=== PATIENT | male | born 1945 | race Caucasian/White ===

== ENCOUNTER 2017-12-10 15:45 | Inpatient (IN) | payer MEDICARE, MEDICAID ==
[~2017-12-10] VITALS: Ht 177.8 cm; Wt 96.3 kg
[2017-12-10 16:13] LABS: BASOPHILS % (AUTO) 0.3 % (0.0-2.0); EOSINOPHILS % (AUTO) 0.6 % (0.0-6.0); HEMATOCRIT 37 % (39-51); HEMOGLOBIN 12.4 g/dL (13.5-17.5); LYMPHOCYTES # (AUTO) 0.4 /CMM (0.8-4.8); LYMPHOCYTES % (AUTO) 3.5 % (20.0-44.0); MEAN CORPUSCULAR HGB CONC 34 g/dl (31.0-36.0); MEAN CORPUSCULAR VOLUME 83 fL (80-96); MONOCYTES # (AUTO) 1.1 /CMM (0.1-1.30); MONOCYTES % (AUTO) 9.6 % (2.0-12.0); NEUTROPHILS # (AUTO) 9.5 /CMM (1.8-8.9); PLATELET COUNT (AUTO) 97 /CMM (150-450); RDW COEFFICIENT OF VARIATION 13.5 (11.5-15.0); WHITE BLOOD COUNT (AUTO) 11.1 K/uL (4.3-11.0)
[2017-12-10] MEDS ORDERED: LIDOCAINE 2% JEL UROJET 10 ML MM ONE ×2 (16:13→16:20)
[2017-12-10 16:25] LABS: CALCIUM, SERUM 9.3 mg/dL (8.5-10.1); CARBON DIOXIDE 26 mmol/L (21-32); CHLORIDE 101 mmol/L (98-107); CREATININE 1.5 mg/dL (0.6-1.3); GLUCOSE 285 mg/dL (74-106); POTASSIUM 3.6 mmol/L (3.5-5.1); SODIUM SERUM 139 mmol/L (136-145); UREA NITROGEN, BLOOD 48 mg/dL (7-18)
[2017-12-10 16:26] LABS: INR 1.05 (0.85-1.15)
[2017-12-10 16:31] LABS: ACETAMINOPHEN 0 ug/ml (10-30); ALANINE AMINOTRANSFERASE 49 U/L (12-78); ALBUMIN 3.6 g/dL (3.4-5.0); ALCOHOL, BLOOD < 3 mg/dL (0-0); ALKALINE PHOSPHATASE 105 U/L (46-116); ASPARTATE AMINOTRANSFERASE 114 U/L (15-37); BILIRUBIN,DIRECT 0.4 mg/dL (0.0-0.2); SALICYLATE 1.5 mg/dL (2.8-20.0); TOTAL PROTEIN, SERUM 7.7 g/dL (6.4-8.2)
[2017-12-10 16:33] LABS: TROPONIN I 0.112 ng/mL (0.00-0.056)
--- NOTE | 2017-12-10 16:35 | NUR ---
SIDNEY MAGALLANES [phone] SISTER
[2017-12-10 16:51] LABS: THYROID STIMULATING HORMONE 1.031 uIU/mL (0.358-3.74)
--- NOTE | 2017-12-10 16:59 | NUR ---
UNABLE INSERT REYES CATHETER AFTER MULTIPLE ATTEMPS DT POSISBLE BLOCKAGED. MD LYONS AWARE. HOLD OFF URINE COLLECTION FOR NOW.
[2017-12-10 17:23] LABS: CREATINE KINASE MB 14.5 ng/mL (0-3.6)
--- NOTE | 2017-12-10 17:42 | NUR ---
CALLED NURSE SUP FOR TELE BED
--- NOTE | 2017-12-10 17:52 | NUR ---
PAGED EPIC FOR PANEL
[2017-12-10] MEDS ORDERED: IV NS 0.9% 1,000 ML BAG IV ONE (18:00)
[2017-12-10] MEDS ORDERED: ASPIRIN 81 MG TAB.CHEW PO ONE (18:00)
[2017-12-10] MEDS ORDERED: PIPERACILLIN /TAZOBACTAM 2.25 G in IV D5W 50 ML IV ONE (18:00)
[2017-12-10] MEDS ORDERED: ASPIRIN 81 MG TAB.CHEW ONE (18:20)
[2017-12-10] MEDS ORDERED: IV NS 0.9% 1,000 ML IV PRN (18:24)
[2017-12-10] MEDS ORDERED: ACETAMINOPHEN 325 MG TABLET PO PRN (18:30)
[2017-12-10] MEDS ORDERED: ENOXAPARIN SODIUM 40 MG/0.4 ML DISP.SYRIN SQ SCH (18:30)
[2017-12-10] MEDS ORDERED: MAG HYDROX/AL HYDROX/SIMETH 30 ML UDC PO PRN (18:30)
[2017-12-10] MEDS ORDERED: ZOLPIDEM TARTRATE 5 MG TABLET PO PRN ×2 (18:30→23:00)
[2017-12-10] MEDS ORDERED: MAGNESIUM HYDROXIDE 30 ML UDC PO PRN (18:30)
[2017-12-10] MEDS ORDERED: Z GUARD REMEDY 2 OZ OINT TP PRN (18:30)
[2017-12-10] MEDS ORDERED: ONDANSETRON HCL/PF 4 MG/2 ML VIAL IVP PRN (18:30)
--- NOTE | 2017-12-10 18:30 | NUR ---
MD ARAUZ AT
[2017-12-10] MEDS ORDERED: ISOS60TA4 PO (19:02)
[2017-12-10] MEDS ORDERED: ZOLP10TA2 PO (19:02)
[2017-12-10] MEDS ORDERED: NPH,100I SQ ×2 (19:02)
[2017-12-10] MEDS ORDERED: ATOR40TA PO (19:02)
[2017-12-10] MEDS ORDERED: ASPI81TA44 PO (19:02)
[2017-12-10] MEDS ORDERED: SOTA80TA PO (19:02)
[2017-12-10] MEDS ORDERED: CYCL30DR EACHEYE (19:02)
[2017-12-10] MEDS ORDERED: LEVO75TA7 PO (19:02)
[2017-12-10] MEDS ORDERED: QUET400T PO (19:02)
[2017-12-10] MEDS ORDERED: OXCA300T4 PO (19:02)
[2017-12-10] MEDS ORDERED: CHOL100040 PO (19:02)
--- NOTE | 2017-12-10 19:23 | NUR ---
PT TRANSFERRED PER ACLS PROTOCOL.
--- NOTE | 2017-12-10 19:30 | NUR ---
RN NOTE RECEIVED PATIENT FROM ER VIA SABA, DX NSTEMI AND ENCEPHALOPATHY, ALERT/ORIENTED X 2, CONFUSED AT TIMES, SR ON THE MONITOR, BACK PAIN 8/10, PAIN MEDICATION ADMINISTERED, BEDREST, PATIENT WAS TRANSFERRED WITH ONGOING IV FLUIDS FROM ER, SKIN PICTURES TAKEN AND FILED IN THE CHART, NO RESPIRATORY DISTRESS NOTED, VITAL SIGNS TAKEN, BED BATH PROVIDED, CARDIAC DIET, ALL SAFETY MEASURES TAKEN, CALL LIGHT WITHIN REACH, ALL BELONGINGS WITHIN REACH, BED IN THE LOWEST POSITION, SIDE RAILS UP X 2, WILL CONTINUE TO MONITOR PATIENT
[2017-12-10] MEDS: HYDROCODONE/APAP 5/325MG 1 EACH TABLET PO PRN (19:47)
[2017-12-10 20:00] VITALS: BP_SYST 157; BP_SYST 168; BP_SYST 177; BP_DIAS 68; BP_DIAS 83; BP_DIAS 88
[2017-12-10] MEDS ORDERED: DEXTROSE 50%-WATER 50 ML DISP.SYRIN IV PRN (22:30)
[2017-12-10] MEDS ORDERED: ZOLPIDEM TARTRATE 5 MG TABLET PO ONE (23:00)
[2017-12-10] MEDS: PIPERACILLIN /TAZOBACTAM 3.375 G in IV NS 0.9% 50 ML IV SCH (23:07)
--- NOTE | 2017-12-10 23:34 | NUR ---
RN NOTE TROPONIN ELEVATED X 2, NOTIFIED CLAIRE COLEMAN, NO NEW ORDERS GIVEN
[2017-12-11] VITALS: BP 147/66
[2017-12-11 04:00] VITALS: BP 149/56
[2017-12-11] MEDS: PIPERACILLIN /TAZOBACTAM 3.375 G in IV NS 0.9% 50 ML IV SCH ×4 (05:52→23:45)
--- NOTE | 2017-12-11 06:00 | NUR ---
RN NOTE NOT ABLE TO INSERT REYES CATHETER, ATTEMPTED X 2, CHARGE NURSE TRIED WELL, NO SUCCESS, PATIENT IS URINATING, DIAPER CHANGE X3, NOTIFIED CLAIRE COLEMAN
[2017-12-11 06:39] LABS: EOSINOPHILS % (AUTO) 0.1 % (0.0-6.0); HEMATOCRIT 32 % (39-51); HEMOGLOBIN 10.9 g/dL (13.5-17.5); LYMPHOCYTES # (AUTO) 0.6 /CMM (0.8-4.8); LYMPHOCYTES % (AUTO) 6.7 % (20.0-44.0); MEAN CORPUSCULAR HGB CONC 34 g/dl (31.0-36.0); MEAN CORPUSCULAR VOLUME 84 fL (80-96); MONOCYTES # (AUTO) 1.2 /CMM (0.1-1.30); NEUTROPHILS # (AUTO) 7.4 /CMM (1.8-8.9); NEUTROPHILS % (AUTO) 80.2 % (43.0-81.0); PLATELET COUNT (AUTO) 84 /CMM (150-450); RDW COEFFICIENT OF VARIATION 14.5 (11.5-15.0); RED BLOOD CELL COUNT(AUTO) 3.79 MIL/uL (4.5-6.0); WHITE BLOOD COUNT (AUTO) 9.2 K/uL (4.3-11.0)
[2017-12-11 07:07] LABS: ALANINE AMINOTRANSFERASE 42 U/L (12-78); ALBUMIN 2.9 g/dL (3.4-5.0); ALKALINE PHOSPHATASE 81 U/L (46-116); ASPARTATE AMINOTRANSFERASE 86 U/L (15-37); BILIRUBIN,TOTAL 0.7 mg/dL (0.2-1.0); CALCIUM, SERUM 8.2 mg/dL (8.5-10.1); CARBON DIOXIDE 26 mmol/L (21-32); CHLORIDE 106 mmol/L (98-107); CREATININE 1.9 mg/dL (0.6-1.3); GLUCOSE 185 mg/dL (74-106); MAGNESIUM 1.8 mg/dL (1.8-2.4); PHOSPHORUS 2.4 mg/dL (2.5-4.9); POTASSIUM 3.4 mmol/L (3.5-5.1); SODIUM SERUM 142 mmol/L (136-145); TOTAL PROTEIN, SERUM 6.4 g/dL (6.4-8.2); UREA NITROGEN, BLOOD 33 mg/dL (7-18)
[2017-12-11 07:09] LABS: CHOLESTEROL 131 mg/dL (<200); HDL CHOLESTEROL 39 mg/dL (40-60); LDL 81 mg/dL (0-99); THYROID STIMULATING HORMONE 2.688 uIU/mL (0.358-3.74); TRIGLYCERIDES 134 mg/dL (30-150)
[2017-12-11] MEDS: BLOOD SUGAR DIAGNOSTIC 1 EACH STRIP IN SCH ×4 (07:30→21:17)
[2017-12-11 07:34] LABS: TROPONIN I 0.479 ng/mL (0.00-0.056)
[2017-12-11 08:00] VITALS: BP 143/68
[2017-12-11] MEDS: HYDROCODONE/APAP 5/325MG 1 EACH TABLET PO PRN (08:12)
--- NOTE | 2017-12-11 08:30 | NUR ---
RN NOTES: CONTACTED DR BARLOW FOR TROPONIN LEVEL AT 0800. MD AWARE OF PATIENT FEELING "NUMB" IN LOWER EXTREMITIES. PATIENT STABLE. DENYING CHEST PAIN, STATING THAT HE IS FEELING ABDOMINAL PAIN THAT IS RADIATING TO ROXAN[place]. PER DR BARLOW, ORDER STAT CT OF ABDOMEN, CHEST, AND PELVIS WITHOUT CONTRAST. DR BARLOW NOTIFIED OF PATIENT'S EKG OF SINUS RHYTHM WITH ABNORMAL T WAVES INDICATING ISHCHEMIA. PLACED IN CHART. NONLABORED BREATHING NOTED ON ROOM AIR. VS WNL
[2017-12-11 08:49] LABS: BAND % (MANUAL) 2 % (0.0-5.0); LYMPHOCYTES % (MANUAL) 8 % (16-48)
[2017-12-11 09:00] LABS: MONOCYTES % (MANUAL) 10 % (0-11.0); NEUTROPHILS % (MANUAL) 80 (42-76)
[2017-12-11] MEDS ORDERED: SOTALOL HCL 80 MG TABLET PO SCH (09:00)
[2017-12-11] MEDS ORDERED: HEPARIN INFUSION/D5W 500 ML IV PRN (10:00)
[2017-12-11] MEDS: POTASSIUM CHLORIDE 20 MEQ TAB.PRT.SR PO SCH ×6 (10:00→16:18)
--- NOTE | 2017-12-11 10:30 | NUR ---
RN NOTES: PER JUAN HOANG, PAGE DR SONIA CASTANEDA
--- NOTE | 2017-12-11 10:32 | NUR ---
RN NOTES: PATIENT URINATE X2 IN DIAPER AFTER CT SCAN. BLADDER SCAN DONE AND PATIENT NOTED TO HAVE [address] LEONEL SCOTT NOTIFIED. HE STATED THAT THERE IS NO INDICATION AT THE MOMENT. JUAN HOANG NP NOTIFIED
--- NOTE | 2017-12-11 10:48 | NUR ---
RN NOTES: BLOOD SUGAR 204 INSULIN HELD, PATIENT REFUSING TO EAT
[2017-12-11] MEDS: ASPIRIN EC 81 MG TABLET.DR PO SCH (11:07)
[2017-12-11] MEDS: LEVOTHYROXINE SODIUM 100 MCG TABLET PO SCH (11:07)
[2017-12-11] MEDS: ISOSORBIDE MONONITRATE (30MG) 30 MG TAB.SR.24H PO SCH (11:07)
[2017-12-11] MEDS: OXCARBAZEPINE 150 MG TABLET PO SCH ×2 (11:08→17:28)
[2017-12-11] MEDS: CHOLECALCIFEROL 1,000 UNIT TABLET (VIT D3) PO SCH (11:09)
[2017-12-11] MEDS ORDERED: HEPARIN SODIUM, PORCINE 5000 UNITS/1 ML VIAL IV ONE ×2 (11:30→15:00)
[2017-12-11 12:00] VITALS: BP 122/62
[2017-12-11] MEDS: METOPROLOL TARTRATE 50 MG TABLET PO SCH ×2 (12:00→17:28)
[2017-12-11] MEDS ORDERED: K PHOS NEUTRAL 250 MG TABLET PO ONE (12:00)
--- NOTE | 2017-12-11 12:00 | NUR ---
RN NOTES: PER DR BEAR Meyer, APPLY TRIPLE ANTIBIOTIC OINTMENT ON LEFT EAR AND COVER WITH MEPILEX
--- NOTE | 2017-12-11 12:00 | NUR ---
RN NOTES: PER DR BEAR Meyer. APPLY TRIPLE ANTIBIOTIC OINTMENT ON LEFT EAR AND COVER WITH MEPILEX
--- NOTE | 2017-12-11 13:24 | NUR ---
RN NOTES: PATIENT REFUSING METOPROLOL STATING " I ALREADY TOOK IT EARLIER." PATIENT EDUCATED ON MEDICATION WITH BENEFITS AND RISKS EXPLAINED. PATIENT STILL REFUSING
--- NOTE | 2017-12-11 15:21 | NUR ---
RN NOTES:\ PER DR BOYCE, ADMINISTER HEPARIN DRIP. AWARE OF CBC RESULTS TODAY
--- NOTE | 2017-12-11 16:07 | NUR ---
RN NOTES: VERIFIED CALCULATIONS WITH PHARMACY. SPOKE TO ERIK AND INFORMED HER THAT PER PROTOCOL CALCULATIONS, PATIENT TO RECEIVE 6,790 UNITS BOLUS. THEN HEPARIN DRIP AT 1,200 UNITS/HOUR. SHE AGREED. CALCULATIONS VERIFIED WITH CHARGE NURSE MIKIE. ADMINISTERED
[2017-12-11 16:30] VITALS: BP 120/70
[2017-12-11 16:55] LABS: APPEARANCE,URINE CLEAR (CLEAR); BILIRUBIN,URINE NEGATIVE (NEGATIVE); BLOOD, URINE 3+ Ery/uL (NEGATIVE); COLOR,URINE YELLOW (YELLOW); KETONES,URINE TRACE (NEGATIVE); LEUKOCYTE ESTERASE ,URINE NEGATIVE (NEGATIVE); NITRITE, URINE NEGATIVE (NEGATIVE); PH,URINE 5.5 (5.0-8.0); PROTEIN,URINE TRACE mg/dl (NEGATIVE); UGLUCOSE NEGATIVE (NEGATIVE); UROBILINOGEN,URINE 0.2 EU/dL (0.2)
[2017-12-11 16:56] LABS: CREATININE, URINE 122.9 MG/DL (30.0-125.0)
[2017-12-11] MEDS: IV NS 0.9% 1,000 ML IV PRN ×2 (17:23→23:47)
[2017-12-11 17:41] LABS: RBC,URINE 21-50 /HPF (0-2)
[2017-12-11 17:42] LABS: BACTERIA,URINE Few /HPF (None Seen); SQUAMOUS EPITHELIAL CELL,UR Few /HPF (None Seen)
[2017-12-11] MEDS ORDERED: NEOMY SULF/BACITRAC ZN/POLY 15 GM TUBE TP PRN (18:30)
--- NOTE | 2017-12-11 18:51 | NUR ---
RN NOTES: CONTACTED DR HADLEY, [facility] PROVIDED AND OBTAINED PATIENT'S MED LIST. HOWEVER, PER PATIENT, "SOME MEDICATIONS ARE DIFFERENT." CALLED SISTER AND LEFT A VOICEMAIL REGARDING OBTAINING CAREGIVER'S PHONE NUMBER
--- NOTE | 2017-12-11 19:20 | NUR ---
RN NOTES: SPOKE TO TARA MAGALLANES, PATIENT'S SISTER. PER PATIENT, OK TO DISCLOSE INFORMATION TO SISTERS MS MAGALLANES PROVIDED US WITH PATIENT'S [employer]OC AIRSPACE CONTROL OFFICER'S, AMY WARE, PHONE NUMBER. SPOKE TO HIM WELL. HE WILL UPDATE US WITH PATIENT'S DRS AND CAREGIVER'S INFORMATION TOMORROW.
--- NOTE | 2017-12-11 19:30 | NUR ---
RN NOTES: PATIENT RESTING IN BED. NONLABORED BREATHING NOTED ON ROOM AIR. NO SIGNS OF DISTRESS NOTED. DENYING CHEST PAIN AT THE MOMENT. IV SITES ON LEFT HAND GAUGE 20 AND GAUGE 22 PATENT AND INTACT. HEPARIN DRIP AND IV FLUIDS BEING ADMINISTERED PER ORDERS AND PROTOCOL. DR BOYCE AWARE OF CBC , TO BE REPEATED TOMORROW. PTT TO BE REPEATED EVERY 6 HOURS PER PROTOCOL. NO ACTIVE SIGNS OF BLEEDING NOTED. PATIENT URINATING DURING SHIFT. ABLE TO URINATE IN URINAL, COLLECTED SPECIMEN AND SENT IT TO LAB PER CLEAN TECHNIQUE, REFUSING TO HAVE STRAIGHT CATH IN STATING " I WILL NOT LET YOU!" DURING SHIFT, PATIENT ENCOURAGED TO TURN AND REPOSITION EVERY TWO HOURS. KEPT CLEAN AND DRY. PATIENT HAD X3 BOWEL MOVEMENTS OF SOFT BROWN, LARGE. DENYING CONSTIPATION. REFUSING TO EAT DINNER,STATING " I DONT LIKE THE FOOD HERE." OFFERED JUICE AND WATER. CONSENT OBTAINED FOR LEFT EAR BIOPSY FROM SISTER SAMRA MAGALLANES, PLACED IN CHART. AWAITING FOR PHARMACY TO DELIVER TRIPLE ANTIBIOTIC OINTMENT. EAR CLEANSED WITH NS , COVERED WITH MEPLIX. AFTER 1000 PATIENT CONTINUED TO DENY NUMBNESS OF LOWER EXTREMITIES, WAS ABLE TO WIGGLE TOES, AND DENIED SENSORY DEFICITS, PER DR LEONEL SCOTT, UROLOGIST- NO REYES CATHETER. BED IN LOWEST LOCKED POSITION. CALL LIGHT WITHIN REACH. ENDORSED TO NEXT SHIFT
[2017-12-11 20:00] VITALS: BP 136/66
--- NOTE | 2017-12-11 20:02 | NUR ---
RN NOTES RECEIVED PATIENT AWAKE IN BED WITH NO RESPIRATORY DISTRESS OR SHORTNESS OF BREATH. BREATHING EVEN AND UNLABORED. ROOM AIR TOLERATING WELL. NO COMPLAINT OF PAIN OR DISCOMFORT. ALERT AND ORIENTED WITH EPISODES OF CONFUSION. VITAL SIGNS WNL. ON HEPARIN DRIP AT 1200UNITS/HR. NO ADVERSE EFFECT NOTED. KEPT CLEAN AND DRY. WILL CONTINUE TO MONITOR.
[2017-12-11] MEDS: NEOMY SULF/BACITRAC ZN/POLY 15 GM TUBE TP SCH (20:51)
[2017-12-11] MEDS: INSULIN REGULAR, HUMAN 100 UNIT/ML 3 ML VIAL SQ PRN (21:19)
[2017-12-11] MEDS: ZOLPIDEM TARTRATE 10 MG TABLET PO SCH (21:20)
[2017-12-11] MEDS: ATORVASTATIN 40 MG TABLET PO SCH (21:20)
--- NOTE | 2017-12-11 22:20 | NUR ---
RN NOTES RECEIVED PTT RESULT OF 53. NO CHANGE IN HEPARIN DRIP, TOLERATING WELL. NO ADVERSE REACTION NOTED. ORDERED PTT LEVEL FOR 6AM.
[2017-12-12] VITALS: BP 144/75
[2017-12-12] MEDS: METOPROLOL TARTRATE 50 MG TABLET PO SCH ×4 (00:30→17:27)
[2017-12-12] MEDS: IV NS 0.9% 1,000 ML IV PRN ×3 (02:04→21:27)
[2017-12-12 04:00] VITALS: BP 148/67
[2017-12-12] MEDS: PIPERACILLIN /TAZOBACTAM 3.375 G in IV NS 0.9% 50 ML IV SCH ×3 (05:27→17:27)
--- NOTE | 2017-12-12 06:27 | NUR ---
RN CLOSING NOTES ALERT AND ORIENTED WITH CONFUSION, IN BED RESTING COMFORTABLY. NO DISTRESS. BREATHING EVEN AND UNLABORED. HEPARIN DRIP ONGOING, NO ADVERSE EFFECT NOTED. NO COMPLAINT OF PAIN OR DISCOMFORT. VITAL SIGNS WNL. KEPT CLEAN AND DRY. WILL ENDORSE TO AM SHIFT FOR CONTINUITY OF CARE.
[2017-12-12] MEDS: BLOOD SUGAR DIAGNOSTIC 1 EACH STRIP IN SCH ×4 (06:36→21:28)
[2017-12-12] MEDS: INSULIN REGULAR, HUMAN 100 UNIT/ML 3 ML VIAL SQ PRN ×4 (06:41→21:42)
[2017-12-12 06:59] LABS: BASOPHILS % (AUTO) 0.3 % (0.0-2.0); EOSINOPHILS % (AUTO) 0.6 % (0.0-6.0); HEMATOCRIT 30 % (39-51); HEMOGLOBIN 10.1 g/dL (13.5-17.5); LYMPHOCYTES # (AUTO) 0.9 /CMM (0.8-4.8); LYMPHOCYTES % (AUTO) 11.2 % (20.0-44.0); MEAN CORPUSCULAR HGB CONC 34 g/dl (31.0-36.0); MEAN CORPUSCULAR VOLUME 85 fL (80-96); MONOCYTES # (AUTO) 0.9 /CMM (0.1-1.30); MONOCYTES % (AUTO) 11.6 % (2.0-12.0); NEUTROPHILS # (AUTO) 6.1 /CMM (1.8-8.9); NEUTROPHILS % (AUTO) 76.3 % (43.0-81.0); PLATELET COUNT (AUTO) 81 /CMM (150-450); RDW COEFFICIENT OF VARIATION 14.7 (11.5-15.0); WHITE BLOOD COUNT (AUTO) 7.9 K/uL (4.3-11.0)
[2017-12-12 07:25] LABS: TROPONIN I 0.264 ng/mL (0.00-0.056)
--- NOTE | 2017-12-12 07:35 | NUR ---
SEAMAN INITIAL NOTE RECEIVED PATIENT AOX2, SPEECH CLEAR, LYING IN BED COMFORTABLY. PATIENT DENIES ANY CARDIAC OR RESPIRATORY DISTRESS, ON RA, SR ON TELE MONITOR, HR 70'S, NO PAIN REPORTED. PATIENT IS BEDBOUND, DIFFICULTY AMBULATING, INCONTINENT. LEFT HAND #20 ON HEPARIN DRIP TOLERATING WELL L HAND #22 TOLERATING NS AT 150 ML/HR. SAFETY MAINTAINED AT ALL TIMES BED IN LOW LOCKED POSITION, CALL LIGHT WITHIN REACH. WILL CONTINUE TO MONITOR FOR ANY CHANGES IN CONDITION.
[2017-12-12 07:56] LABS: ALANINE AMINOTRANSFERASE 59 U/L (12-78); ALBUMIN 2.5 g/dL (3.4-5.0); ALKALINE PHOSPHATASE 59 U/L (46-116); ASPARTATE AMINOTRANSFERASE 56 U/L (15-37); BILIRUBIN,TOTAL 0.6 mg/dL (0.2-1.0); CALCIUM, SERUM 7.8 mg/dL (8.5-10.1); CARBON DIOXIDE 27 mmol/L (21-32); CHLORIDE 107 mmol/L (98-107); GLUCOSE 184 mg/dL (74-106); MAGNESIUM 1.5 mg/dL (1.8-2.4); PHOSPHORUS 2.6 mg/dL (2.5-4.9); POTASSIUM 3.8 mmol/L (3.5-5.1); SODIUM SERUM 143 mmol/L (136-145); TOTAL PROTEIN, SERUM 5.9 g/dL (6.4-8.2); UREA NITROGEN, BLOOD 21 mg/dL (7-18)
[2017-12-12] MEDS: LEVOTHYROXINE SODIUM 100 MCG TABLET PO SCH (07:57)
[2017-12-12 08:00] VITALS: BP 133/72
[2017-12-12 08:02] LABS: CREATININE 0.9 mg/dL (0.6-1.3)
[2017-12-12] MEDS: ISOSORBIDE MONONITRATE (30MG) 30 MG TAB.SR.24H PO SCH (09:03)
[2017-12-12] MEDS: ASPIRIN EC 81 MG TABLET.DR PO SCH (09:03)
[2017-12-12] MEDS: CHOLECALCIFEROL 1,000 UNIT TABLET (VIT D3) PO SCH (09:03)
[2017-12-12] MEDS: OXCARBAZEPINE 150 MG TABLET PO SCH ×2 (09:03→17:28)
[2017-12-12] MEDS: NEOMY SULF/BACITRAC ZN/POLY 15 GM TUBE TP SCH (09:04)
[2017-12-12 10:17] LABS: BAND % (MANUAL) 5 % (0.0-5.0); LYMPHOCYTES % (MANUAL) 12 % (16-48); MONOCYTES % (MANUAL) 13 % (0-11.0); NEUTROPHILS % (MANUAL) 70 (42-76)
[2017-12-12] MEDS: VALSARTAN 80 MG TABLET PO SCH (10:22)
[2017-12-12] MEDS: ENOXAPARIN SODIUM 40 MG/0.4 ML DISP.SYRIN SQ SCH (10:30)
[2017-12-12 10:55] LABS: IRON, SERUM 31 ug/dl (50-175); TOTAL IRON BINDING CAPACITY 146 ug/dl (250-450)
[2017-12-12 11:01] LABS: FERRITIN 803 ng/mL (8-388)
[2017-12-12] MEDS: Magnesium 1GM/D5W 100ML PREMIX 100 ML IV SCH ×2 (12:40→13:39)
[2017-12-12 16:00] VITALS: BP 146/60
--- NOTE | 2017-12-12 19:30 | NUR ---
MS RN CLOSING NOTES: PATIENT IN BED, AOX2, ON ROOM AIR, BREATHING EVEN AND UNLABORED. APPEARS CALM AND IN NO DISTRESS. DENIES PAIN, SAYS "I AM FEELING BETTER" AND "SHANKAR HELPED ME TO MOVE BETTER TODAY." PIV OVER L HAND INTACT AND PATENT, INFUSING WELL WITH NS RUNNING AT 150 ML/HR. PROVIDED FOR COMFORT AND SAFETY. BED IN LOWEST AND LOCKED POSITION, SIDERAILS UP X 3, CALL LIGHT WITHIN REACH. WILL CONT TO MONITOR.
[2017-12-12 20:00] VITALS: BP 138/59
--- NOTE | 2017-12-12 21:07 | NUR ---
RN NOTES: PATIENT HAS SEROQUEL 1200 MG/ 12 TABS SCHEDULED FOR TONIGHT AT . CALLED PHARMACY TO VERIFY THAT DOSE IS CORRECT, SPOKE TO KADEN. PER PHARMACIST, THIS IS THE DOSE IN HIS PRESCRIPTIONS AND THAT HE HAS BEEN TAKING THIS DOSE BEFORE.
--- NOTE | 2017-12-12 21:30 | NUR ---
RN NOTES: VERFIED WITH PATIENT HIMSELF THAT HE IS TAKING SEROQUEL 1200 MG FOR "YEARS" OR ELSE, HE IS NOT ABLE TO SLEEP. HE ADDED THAT HIS DOCTOR ALSO SUGGESTED TO TAPER IT DOWN BY DECREASING THE DOSE BY 50 MG PER WEEK, ONCE HE IS OUT OF THE HOSPITAL.
[2017-12-12] MEDS: ATORVASTATIN 40 MG TABLET PO SCH (21:33)
[2017-12-12] MEDS: QUETIAPINE FUMARATE 100 MG TABLET PO SCH ×2 (21:50→22:00)
[2017-12-12] MEDS: ZOLPIDEM TARTRATE 10 MG TABLET PO SCH (22:00)
--- NOTE | 2017-12-12 22:20 | NUR ---
RN NOTES: NOTED PIV OVER LEFT HAND TO BE LEAKING. D'EMIL LINE AND REINSERTED NEW IV LINE OVER RFA G 22, WITH GOOD BLOOD RETURN. BLOOD SUGAR CHCKED AT 134 MG/DL, ADMINISTERED 2 UNITS REGULAR INSULIN PER SCALE. GAVE LIGHT SNACK.
[2017-12-13] MEDS: PIPERACILLIN /TAZOBACTAM 3.375 G in IV NS 0.9% 50 ML IV SCH ×5 (00:01→23:14)
[2017-12-13] MEDS: METOPROLOL TARTRATE 50 MG TABLET PO SCH ×5 (00:04→23:15)
[2017-12-13 04:00] VITALS: BP 121/56
[2017-12-13] MEDS: BLOOD SUGAR DIAGNOSTIC 1 EACH STRIP IN SCH ×4 (06:41→22:02)
[2017-12-13] MEDS: INSULIN REGULAR, HUMAN 100 UNIT/ML 3 ML VIAL SQ PRN ×4 (06:42→22:01)
[2017-12-13] MEDS: LEVOTHYROXINE SODIUM 100 MCG TABLET PO SCH (06:43)
[2017-12-13] MEDS: IV NS 0.9% 1,000 ML IV PRN ×3 (06:56→23:53)
--- NOTE | 2017-12-13 06:58 | NUR ---
MS RN CLOSING NOTES: PATIENT IN BED, AOX3, ON ROOM AIR, BREATHING EVEN AND UNLABORED. APPEARS CALM AND IN NO DISTRESS. DENIES PAIN. PIV OVER RFA G 22 INTACT AND INFUSING WELL WITH NS RUNNING AT 150 ML/HR. DUE MEDS GIVEN. PROVIDED FOR COMFORT AND SAFETY. BED IN LOWEST AND LOCKED POSITION, SIDERAILS UP X 3, CALL LIGHT WITHIN REACH. WILL ENDORSE TO AM RN FOR JESÚS.
[2017-12-13 07:13] LABS: BASOPHILS % (AUTO) 0.1 % (0.0-2.0); EOSINOPHILS % (AUTO) 1.9 % (0.0-6.0); HEMATOCRIT 28 % (39-51); HEMOGLOBIN 9.7 g/dL (13.5-17.5); LYMPHOCYTES % (AUTO) 15.9 % (20.0-44.0); MEAN CORPUSCULAR HGB CONC 35 g/dl (31.0-36.0); MEAN CORPUSCULAR VOLUME 84 fL (80-96); MONOCYTES # (AUTO) 0.8 /CMM (0.1-1.30); MONOCYTES % (AUTO) 11.7 % (2.0-12.0); NEUTROPHILS # (AUTO) 4.6 /CMM (1.8-8.9); NEUTROPHILS % (AUTO) 70.4 % (43.0-81.0); PLATELET COUNT (AUTO) 82 /CMM (150-450); RDW COEFFICIENT OF VARIATION 14.4 (11.5-15.0); RED BLOOD CELL COUNT(AUTO) 3.34 MIL/uL (4.5-6.0); WHITE BLOOD COUNT (AUTO) 6.6 K/uL (4.3-11.0)
--- NOTE | 2017-12-13 07:30 | NUR ---
received received pt. in am alert and oriented x3.no complaints offered.
[2017-12-13 07:58] LABS: ALANINE AMINOTRANSFERASE 49 U/L (12-78); ALBUMIN 2.4 g/dL (3.4-5.0); ALKALINE PHOSPHATASE 65 U/L (46-116); ASPARTATE AMINOTRANSFERASE 48 U/L (15-37); BILIRUBIN,TOTAL 0.6 mg/dL (0.2-1.0); CALCIUM, SERUM 7.9 mg/dL (8.5-10.1); CARBON DIOXIDE 26 mmol/L (21-32); CHLORIDE 109 mmol/L (98-107); CREATININE 0.7 mg/dL (0.6-1.3); GLUCOSE 150 mg/dL (74-106); MAGNESIUM 1.8 mg/dL (1.8-2.4); POTASSIUM 3.5 mmol/L (3.5-5.1); SODIUM SERUM 144 mmol/L (136-145); TOTAL PROTEIN, SERUM 5.5 g/dL (6.4-8.2); UREA NITROGEN, BLOOD 14 mg/dL (7-18)
[2017-12-13 08:00] VITALS: BP 126/76
[2017-12-13] MEDS: OXCARBAZEPINE 150 MG TABLET PO SCH ×2 (10:00→17:58)
[2017-12-13] MEDS: CHOLECALCIFEROL 1,000 UNIT TABLET (VIT D3) PO SCH (10:00)
[2017-12-13] MEDS: ISOSORBIDE MONONITRATE (30MG) 30 MG TAB.SR.24H PO SCH (10:00)
[2017-12-13] MEDS: ASPIRIN EC 81 MG TABLET.DR PO SCH (10:00)
[2017-12-13] MEDS: ENOXAPARIN SODIUM 40 MG/0.4 ML DISP.SYRIN SQ SCH (10:02)
[2017-12-13] MEDS: NEOMY SULF/BACITRAC ZN/POLY 15 GM TUBE TP SCH (10:03)
[2017-12-13 10:14] LABS: BAND % (MANUAL) 1 % (0.0-5.0); EOSINOPHILS % (MANUAL) 1 % (0-4); LYMPHOCYTES % (MANUAL) 17 % (16-48); MONOCYTES % (MANUAL) 8 % (0-11.0); NEUTROPHILS % (MANUAL) 73 (42-76)
[2017-12-13 12:00] VITALS: BP 134/62
[2017-12-13 12:30] VITALS: BP 134/62
--- NOTE | 2017-12-13 12:30 | NUR ---
dr. medina in to see pt. dr. brown in to see pt.
--- NOTE | 2017-12-13 15:00 | NUR ---
cooperative,med compliant.
[2017-12-13] MEDS: VALSARTAN 80 MG TABLET PO SCH (15:42)
[2017-12-13 16:00] VITALS: BP 125/55
--- NOTE | 2017-12-13 17:06 | NUR ---
transferred via bed to [email or web address] to aubrey.all belongings additionally sent with pt.
[2017-12-13] MEDS: HYDROCODONE/APAP 5/325MG 1 EACH TABLET PO PRN (17:45)
--- NOTE | 2017-12-13 19:00 | NUR ---
RN MS NOTES PT IN BED, AWAKE, ALERT AND ORIENTED, NO COMPLAINT OF PAIN OR ANY DISCOMFORT, BREATHING PATTERN NORMAL, CALL LIGHT WITHIN REACH, IV FLUIDS INFUSING WELL, PM MEDS GIVEN ORDERED, BLOOD SUGAR CHECKED, INSULIN GIVEN PER SLIDING SCALE ORDERED, ALL NEEDS ATTENDED.
[2017-12-13 20:00] VITALS: BP 118/82
[2017-12-13] MEDS: ATORVASTATIN 40 MG TABLET PO SCH (21:54)
[2017-12-13] MEDS: ZOLPIDEM TARTRATE 10 MG TABLET PO SCH (21:54)
--- NOTE | 2017-12-13 22:03 | NUR ---
Accucheck 289 mg/dl, 6 units regular insulin sc administered, sandwich given for snack
[2017-12-13] MEDS ORDERED: QUETIAPINE FUMARATE 100 MG TABLET ONE (23:00)
[2017-12-13] MEDS: QUETIAPINE FUMARATE 100 MG TABLET PO SCH (23:13)
--- NOTE | 2017-12-13 23:19 | NUR ---
PATIEN REQUESTED TO REDUCE HIS SEROQUEL FROM 1200 MG TO 1000 MG DOSE.
[2017-12-14] MEDS: PIPERACILLIN /TAZOBACTAM 3.375 G in IV NS 0.9% 50 ML IV SCH ×3 (05:09→17:11)
[2017-12-14] MEDS: METOPROLOL TARTRATE 50 MG TABLET PO SCH ×4 (05:18→23:03)
[2017-12-14] MEDS: BLOOD SUGAR DIAGNOSTIC 1 EACH STRIP IN SCH ×4 (05:31→22:28)
--- NOTE | 2017-12-14 05:32 | NUR ---
ACCUCHECK THIS MORNING, 129 MG/DL, NO INSULIN DUE AT THIS TIME.
[2017-12-14 08:00] VITALS: BP 134/64
[2017-12-14] MEDS: OXCARBAZEPINE 150 MG TABLET PO SCH ×2 (08:53→17:12)
[2017-12-14] MEDS: LEVOTHYROXINE SODIUM 100 MCG TABLET PO SCH (08:54)
[2017-12-14] MEDS: ASPIRIN EC 81 MG TABLET.DR PO SCH (08:54)
[2017-12-14] MEDS: VALSARTAN 80 MG TABLET PO SCH (08:54)
[2017-12-14] MEDS: CHOLECALCIFEROL 1,000 UNIT TABLET (VIT D3) PO SCH (08:54)
[2017-12-14] MEDS: ENOXAPARIN SODIUM 40 MG/0.4 ML DISP.SYRIN SQ SCH (08:55)
[2017-12-14] MEDS: ISOSORBIDE MONONITRATE (30MG) 30 MG TAB.SR.24H PO SCH (08:55)
[2017-12-14] MEDS: NEOMY SULF/BACITRAC ZN/POLY 15 GM TUBE TP SCH (08:59)
--- NOTE | 2017-12-14 09:01 | NUR ---
RN MS NOTES PT IN BED, AWAKE, ALERT AND ORIENTEDX3, LEFT SIDE [place], IN NO APPARENT DISTRESS, DENIES PAIN OR DISCOMFORT AT THIS TIME, RESPIRATIONS EVEN AND UNLABORED, ON ROOM AIR, IV TO RIGHT FA 22G INFUSING FLUIDS WELL. LEFT EAR NON HEALING WOUND. SAFETY MEASURES RENDERED, CALL LIGHT PLACED WITHIN REACH. WILL CONTINUE TO MONITOR.
[2017-12-14] MEDS: INSULIN REGULAR, HUMAN 100 UNIT/ML 3 ML VIAL SQ PRN ×3 (12:32→22:32)
--- NOTE | 2017-12-14 12:35 | NUR ---
MS/RN NOTES 1200 BLOOD SUGAR CHECK DONE; 259MG/DL. PATIENT COVERED WITH 6 UNITS INSULIN PER SLIDING SCALE, MEAL AT BEDSIDE, NO S/S OF HYP/HYPERGLYCEMIA. WILL MONITOR
--- NOTE | 2017-12-14 14:49 | NUR ---
MS/RN NOTES PATIENT RESTING IN BED COMFORTABLY, NO S/S OF DISTRESS/DISCOMFORT NOTED. VITAL SIGNS STABLE AND WITHIN NORMAL LIMITS. WILL CONTINUE TO MONITOR.
[2017-12-14 16:00] VITALS: BP 150/83
[2017-12-14] MEDS: IV NS 0.9% 1,000 ML IV PRN (17:12)
--- NOTE | 2017-12-14 18:49 | NUR ---
MS/RN NOTES PATIENT RESTING IN BED COMFORTABLY, NO SIGNIFICANT CHANGES IN CONDITION, VITAL SIGNS REMAIN STABLE, AFEBRILE. ALL DUE MEDICATIONS GIVEN , ALL NEEDS MET AND ATTENDED. IV TO RIGHT FA INFUSING NS AT 150CC/HR. SAFETY MEASURES RENDERED, CALL LIGHT PLACED WITHIN EASY REACH. WILL ENDORSE CARE TO ONLINE MERCHANDISING COORDINATOR FOR JESÚS.
--- NOTE | 2017-12-14 19:25 | NUR ---
MS/RN OPENING NOTES PT RECEIVED RESTING COMFORTABLY IN BED. A/OX3. [place] TO LEFT EAR. ON ROOM AIR, BREATHING EVEN AND UNLABORED. NO SOB NOTED. DENIES PAIN. PT FOR LEXISCAN IN AM. CONSENT SIGNED. IV TO RFA PATENT AND INTACT RUNNING IVF ORDERED. BED IN LOW/LOCKED POSITION WITH CALL LIGHT IN REACH. SIDE RAILS UPX2. WILL CONTINUE TO MONITOR
[2017-12-14 20:00] VITALS: BP 162/74
[2017-12-14] MEDS: ATORVASTATIN 40 MG TABLET PO SCH (22:28)
[2017-12-14] MEDS: ZOLPIDEM TARTRATE 10 MG TABLET PO SCH (22:28)
[2017-12-14] MEDS ORDERED: QUETIAPINE FUMARATE 100 MG TABLET ONE ×2 (22:51→22:53)
[2017-12-14] MEDS: QUETIAPINE FUMARATE 100 MG TABLET PO SCH (23:28)
--- NOTE | 2017-12-14 23:47 | NUR ---
MS/RN NOTES PYXIS ONLY STOCKED WITH 1,00MG (10 TABS) OF SEROQUEL. INTENDED DOSE IS 1200MG (12TABS). REMOVED 200MG (2 TABS) FROM 3W PYXIS. HUMAN RESOURCES OPERATIONS MANAGER TO OVERRIDE. HOWEVER INSTEAD OF TAKING 2 TABS, ACCIDENTALLY ONLY TOOK 1 TAB. WENT INTO PYXIS AGAIN TO REMOVE ONE MORE TAB. PYXIS SHOWING 7 TABS AVAILABLE WHEN THERE ARE ONLY 6 LEFT. WILL FOLLOW UP WITH PHARMACY TO SOLVE DISCREPANCY
[2017-12-15] MEDS: PIPERACILLIN /TAZOBACTAM 3.375 G in IV NS 0.9% 50 ML IV SCH ×4 (00:04→17:13)
[2017-12-15] MEDS: IV NS 0.9% 1,000 ML IV PRN (05:23)
[2017-12-15] MEDS: METOPROLOL TARTRATE 50 MG TABLET PO SCH ×3 (06:00→17:13)
[2017-12-15] MEDS: BLOOD SUGAR DIAGNOSTIC 1 EACH STRIP IN SCH ×3 (06:51→17:17)
[2017-12-15] MEDS: INSULIN REGULAR, HUMAN 100 UNIT/ML 3 ML VIAL SQ PRN ×3 (06:52→17:25)
--- NOTE | 2017-12-15 07:30 | NUR ---
MS/RN CLOSING NOTES PT ASLEEP COMFORTABLY IN BED, EASILY . A/OX3. [place] TO LEFT EAR. ON ROOM AIR, BREATHING EVEN AND UNLABORED. NO SOB NOTED. DENIES PAIN. PT SLEPT WELL DURING SHIFT. PT REMAINED NPO SINCE MIDNIGHT FOR LEXISCAN THIS AM. CONSENT SIGNED. IV TO RFA PATENT AND INTACT. NO SIGNIFICANT CHANGES OVERNIGHT. KEPT PT COMFORTABLE DURING SHIFT. BED IN LOW/LOCKED POSITION WITH CALL LIGHT IN REACH. SIDE RAILS UPX2. ENDORSED TO DAY SHIFT RN JESÚS.
--- NOTE | 2017-12-15 07:56 | NUR ---
MS RN: INITIAL NOTE RECEIVED PT A/OX3. NO DISTRESS NOTED. NO SOB NOTED. NO PAIN NOTED. NPO DUE TO LEXISCAN SCHEDULED. NO MEDS TO BE GIVEN. CONTINENT/ INCONTINENT. USES URINAL AND DIAPER. R FA #22 RUNNING NS AT 150ML/HR. SITE CLEAR AND PATENT. NO REDNESS OR BLEEDING NOTED. RESTING COMFORTABLY IN BED. CALL LIGHT WITHIN REACH.
[2017-12-15] MEDS ORDERED: REGADENOSON 0.4 MG/5 ML DISP.SYRIN IVP ONE (08:00)
[2017-12-15 08:27] VITALS: BP 161/79
[2017-12-15] MEDS: ASPIRIN EC 81 MG TABLET.DR PO SCH (11:06)
[2017-12-15] MEDS: ISOSORBIDE MONONITRATE (30MG) 30 MG TAB.SR.24H PO SCH (11:06)
[2017-12-15] MEDS: VALSARTAN 80 MG TABLET PO SCH (11:07)
[2017-12-15] MEDS: HYDROCODONE/APAP 5/325MG 1 EACH TABLET PO PRN (11:07)
[2017-12-15] MEDS: OXCARBAZEPINE 150 MG TABLET PO SCH ×2 (11:07→17:13)
[2017-12-15] MEDS: CHOLECALCIFEROL 1,000 UNIT TABLET (VIT D3) PO SCH (11:07)
[2017-12-15] MEDS: LEVOTHYROXINE SODIUM 100 MCG TABLET PO SCH (11:07)
[2017-12-15] MEDS: NEOMY SULF/BACITRAC ZN/POLY 15 GM TUBE TP SCH (11:07)
[2017-12-15] MEDS: ENOXAPARIN SODIUM 40 MG/0.4 ML DISP.SYRIN SQ SCH (11:08)
--- NOTE | 2017-12-15 11:13 | NUR ---
PT RETURNED FROM [facility]. ABLE TO CONTINUE PREVIOUS MEDS. CARDIAC DIET.
--- NOTE | 2017-12-15 11:28 | NUR ---
NMCARDIAC STRESS TEST WAS COMPLETED. TECH :RB
[2017-12-15] MEDS ORDERED: SILVER NITRATE APPLICATOR 1 EA BOX TP ONE (15:00)
[2017-12-15] MEDS ORDERED: LIDOCAINE 1%-EPI 1:100,000 20 ML VIAL TP ONE (15:00)
[2017-12-15 16:31] VITALS: BP 149/72
--- NOTE | 2017-12-15 17:57 | NUR ---
ORDERS BY MD ZIMMERMAN TO PLACE D/C ORDER FOR PT TO GO TO [facility]. TORB TO CONTINUE ALL MEDICATIONS. ALL ORDERS CARRIED OUT. MED RECON LIST SIGNED BY TWO RNS.
--- NOTE | 2017-12-15 18:47 | NUR ---
MS RN: CLOSING NOTE PT TOOK ALL MEDICATIONS ON TIME. NO ADVERSE REACTIONS NOTED. LEXISCAN DONE TODAY. NEGATIVE RESULTS. A/OX3. HARD OF HEARING IN LEFT EAR. CONTINENT/INCONTINENT. USES DIAPER AND URINAL. L EAR WOUND CARE DONE. BIOPSY DONE BY MD SIFUENTES. ORDERS TO BE DISCHARGED BY . ORDERS PLACED. ALL DISCHARGE INFORMATION SIGNED BY PATEINT. REPORT GIVEN TO TAM AT [facility]. R FA #22 RUNNING NS AT 100ML/HR. TO KEEP IV DUE TO CONTINUING IV ATB AT [facility]. INSULIN GIVEN PER SLIDING SCALE ORDERED. TO FOLLOW UP WITH PCP IN ONE WEEK. TO FOLLOW UP WITH MD SIFUENTES IN ONE WEEK FOR BIOPSY RESULTS . TRIED TO CONTACT FAMILY. WAS NOT ABLE TO CONTACT SISTERS OR TELEGRAPH SERVICE CLERK DUE TO PT NOT REMEMBERING NUMBER AND NOTHING PLACE IN FACE SHEET. WILL LEFT NEXT SHIFT KNOW TO INFORM FAMILY IF CALLS BACK TODAY OR TOMORROW. ALL BELONGINGS ACCOUNTED FOR. WILL ENDORSE DISCHARGE TO NEXT SHIFT NURSE. RESTING COMFORTABLY IN BED. CALL LIGHT WITHIN REACH.
--- NOTE | 2017-12-15 19:30 | NUR ---
MS/RN OPENING NOTES PT RECEIVED AWAKE, SEMI FOWLERS IN BED. A/OX3. ON ROOM AIR, BREATHING EVEN AND UNLABORED. DENIES SOB OR PAIN AT THIS TIME. IV TO RFA PATENT AND INTACT. PT WITH DISCHARGE ORDERS, GOING TO [facility]. AMBULANCE TO PICK PT UP BETWEEN [phone]. PT AWARE. BED IN LOW/LOCKED POSITION WITH CALL LIGHT IN REACH. SIDE RAILS UPX2. WILL CONTINUE TO MONITOR.
--- NOTE | 2017-12-15 19:40 | NUR ---
MS/RN NOTES ABLE TO GET IN CONTACT WITH PT'S HOME ECONOMIST CONSUMER SERVICE AMY WARE . PROVIDED UPDATES AND PLAN FOR DC TONIGHT. ABLE TO PROVIDE ME WITH THE NUMBER TO PT'S SISTER WHO LIVES IN [place], [place] . CALLED [place] WELL TO PROVIDED UPDATES AND PLAN FOR DC TONIGHT. PT AWARE THAT I HAD SPOKEN TO BOTH CONTACTS
[2017-12-15] MEDS ORDERED: NITROGLYCERIN 0.4 MG/TAB BOTTLE SL ONE (20:30)
[2017-12-15] MEDS ORDERED: hydrALAZINE HCL 50 MG TABLET PO ONE (20:30)
[2017-12-15 20:31] VITALS: BP 166/86
--- NOTE | 2017-12-15 20:50 | NUR ---
MS/RN CLOSING NOTES PT DISCHARGED VIA GURNEY TO [facility] IN STABLE CONDITION. BELONGINGS AND DISCHARGE PAPERWORK SENT WITH PT. IV TO RFA REMAINED IN PLACE UPON DISCHARGE, PT TO RECEIVE IV ABX AT [facility]. PRIOR TO DISCHARGE, PARAMEDICS NOTED BP 186/84, HR 64. NOTIFIED CLAIRE COLEMAN, WITH ORDERS TO GIVE NITRO SUBLINGUAL 0.4MG X1 AND HYDRALAZINE 50MG PO X1. ADMINISTERED ORDERED.
== END 2017-12-15 20:50 | DRG 871 ==
LOC: ER 15:48 → TELE1 18:32 → MEDSG1 12-12 09:50 → MEDSG2 12-13 17:03
PROVIDERS: ADMIT Internal Medicine; ATTEND Internal Medicine
PROC: 0HB3XZX Excision of Left Ear Skin, External Approach, Diagnostic (ICD-10-PCS; principal; 2017-12-15)
DX: A41.9 Sepsis, unspecified organism (principal); G93.41 Metabolic encephalopathy; I21.4 Non-ST elevation (NSTEMI) myocardial infarction; N17.0 Acute kidney failure with tubular necrosis; E87.2 Acidosis; M62.82 Rhabdomyolysis; C44.229 Squamous cell carcinoma of skin of left ear and external auricular canal; N39.0 Urinary tract infection, site not specified; E11.9 Type 2 diabetes mellitus without complications; D64.9 Anemia, unspecified; F03.90 Unspecified dementia, unspecified severity, without behavioral disturbance, psychotic disturbance, mood disturbance, and anxiety; I10 Essential (primary) hypertension; I25.10 Atherosclerotic heart disease of native coronary artery without angina pectoris; E03.9 Hypothyroidism, unspecified; L98.8 Other specified disorders of the skin and subcutaneous tissue; Z79.4 Long term (current) use of insulin; N40.1 Benign prostatic hyperplasia with lower urinary tract symptoms
CPT/HCPCS: 36415; 70450-TC; 71045-TC; 71250-TC; 80048-TC; 80053-TC; 80061-TC; 80076-TC; 81000-TC; 82550-TC; 82553-TC; 82570-TC; 82728-TC; 82962-TC; 83540-TC; 83605-TC; 83735-TC; 84100-TC; 84300-TC; 84443-TC; 84484-TC; 85025-TC; 85730-TC; 87040-TC; 87081-TC; 87086-TC; 88305-TC; 93307-TC; 97110-TC; 97112-TC; 97116-TC; 97530-TC; A4216; A4217; A4606; A6403; A9502; G0480; J1644; J1650; J1815; J2543; J2785; J3475; J3490; J7030; J7060; Z7610